=== PATIENT | female | born 1965 | race Caucasian/White ===

== ENCOUNTER 2019-08-15 08:41 | Outpatient (CLI) | payer OTHER, SELFPAY ==
--- NOTE | 2019-08-15 08:44 | MM_ITS ---
WS: [id number] SCREENING DIGITAL MAMMOGRAM WITH CAD HISTORY: SCREENING COMPARISON: 04/12/2018, 01/27/2011, 10/10/2012 and 08/14/2014 Bilateral CC and MLO views submitted. Computer aided detection analyzed. Breast composition: The breasts are heterogeneously dense, which may obscure small masses. Vague asym metry in the posterior medial LEFT breast measures 8.4 mm. This asymmetry was not present on the prio r examinations. Also not seen on the lateral projection with certainty. Could be obscured with the no rmal fibroglandular densities. LEFT breast: Spot compression views (CC and MLO). LEFT MLO spot compressions in the superior and midd le depth. True ML. Ultrasound to follow if abnormality persists. MM/[place] [id number] IMPRESSION: BI-RADS: 0-Incomplete: Need additional imaging evaluation FOLLOW UP: Need Additional Imaging
== END 2019-08-15 08:42 | disposition home or self-care (01) ==
LOC: RADSHAW 08:41
PROVIDERS: Family Provider Nurse Practitioner Family; PCP Nurse Practitioner Family; Visit Provider Nurse Practitioner Women's Health
DX: Z12.31 Encounter for screening mammogram for malignant neoplasm of breast (principal)
CPT/HCPCS: 77067

== ENCOUNTER 2019-09-08 08:56 | Outpatient (CLI) | payer OTHER, SELFPAY ==
--- NOTE | 2019-09-08 09:00 | MM_ITS ---
WS: [id number] ADDITIONAL VIEWS LEFT MAMMOGRAM LEFT BREAST ULTRASOUND HISTORY: abnormal mammogram COMPARISON: 08/15/2019, 04/12/2018 and 11/29/2015 LEFT MAMMOGRAM: Spot compression views and true ML. Asymmetries persist in the posterior LEFT breast. There are asymmetries both medial and lateral to th e nipple posteriorly. There is no architectural distortion. These are probably fibroglandular densiti es which are normal. LEFT BREAST ULTRASOUND 2-D and color Doppler imaging submitted. Ultrasound is directed to the posterior breast medial and lateral to the nipple. There is a hypoechoi c nodule measuring 6 x 3 x 5 mm at 12:00. Very benign in appearance. This may correspond to the abnor mality seen in the superior breast on the lateral projection. There are a few mildly prominent ducts. An additional area 2:00 3 cm nipple measures 1.1 x 0.3 x 0.6 cm. MM/[place] [id number] IMPRESSION: BI-RADS: 3-Probably Benign FOLLOW UP: 6 Month Follow-up Follow up recommended of multiple asymmetries in the LEFT breast. Asymmetries a re benign in appearance both by mammography and ultrasound but need further ruy luation.
--- NOTE | 2019-09-08 09:30 | US_ITS ---
WS: [id number] ADDITIONAL VIEWS LEFT MAMMOGRAM LEFT BREAST ULTRASOUND HISTORY: abnormal mammogram COMPARISON: 08/15/2019, 04/12/2018 and 11/29/2015 LEFT MAMMOGRAM: Spot compression views and true ML. Asymmetries persist in the posterior LEFT breast. There are asymmetries both medial and lateral to th e nipple posteriorly. There is no architectural distortion. These are probably fibroglandular densiti es which are normal. LEFT BREAST ULTRASOUND 2-D and color Doppler imaging submitted. Ultrasound is directed to the posterior breast medial and lateral to the nipple. There is a hypoechoi c nodule measuring 6 x 3 x 5 mm at 12:00. Very benign in appearance. This may correspond to the abnor mality seen in the superior breast on the lateral projection. There are a few mildly prominent ducts. An additional area 2:00 3 cm nipple measures 1.1 x 0.3 x 0.6 cm. US/US breast LT limited* [id number] IMPRESSION: BI-RADS: 3-Probably Benign FOLLOW UP: 6 Month Follow-up Follow up recommended of multiple asymmetries in the LEFT breast. Asymmetries a re benign in appearance both by mammography and ultrasound but need further ruy luation.
== END 2019-09-08 08:57 | disposition home or self-care (01) ==
LOC: RADSHAW 08:57
PROVIDERS: Family Provider Nurse Practitioner Family; PCP Nurse Practitioner Family; Visit Provider Nurse Practitioner Women's Health
DX: N64.89 Other specified disorders of breast (principal); R92.8 Other abnormal and inconclusive findings on diagnostic imaging of breast
CPT/HCPCS: 76642; 77065

== ENCOUNTER 2020-05-25 10:01 | Outpatient (CLI) | payer OTHER, SELFPAY ==
--- NOTE | 2020-05-25 10:12 | US_ITS ---
WS: [id number] ABDOMINAL ULTRASOUND LIMITED REASON FOR VISIT: ABD PAIN TECHNIQUE: Grayscale and Doppler ultrasound examination of the abdomen. FINDINGS: Pancreas: Visualized portions are unremarkable. No mass, calcification, or ductal dilatation. Abdominal aorta and IVC: Visualized portions are normal. Liver: Liver measures 14.3 cm in length. Homogeneous echo pattern without focal lesion. Gallbladder: Gallbladder wall thickness measures 0.1 mm. Large calculus in the neck of the gallbladde r, nonmobile. Right kidney: Right kidney measures 10.7 cm x 5.7 cm x 4.6 cm. No mass, calculus, or hydronephrosis. No free fluid. US/US gall bladder [id number] IMPRESSION: Cholelithiasis as above.
== END 2020-05-25 10:02 | disposition home or self-care (01) ==
PROVIDERS: PCP Nurse Practitioner Family; Visit Provider Nurse Practitioner Family
DX: R10.9 Unspecified abdominal pain (principal); K80.20 Calculus of gallbladder without cholecystitis without obstruction
CPT/HCPCS: 76705

== ENCOUNTER → 2021-03-11 12:25 | Outpatient (BNVA) | payer OTHER, SELFPAY | PROVIDERS: PCP Nurse Practitioner Family; Visit Provider Nurse Practitioner Women's Health | DX: Z01.419 Encounter for gynecological examination (general) (routine) without abnormal findings (principal) | CPT/HCPCS: 88175 ==

== ENCOUNTER → 2021-04-22 09:45 | Outpatient (BNVA) | payer OTHER, SELFPAY | PROVIDERS: PCP Nurse Practitioner Family; Visit Provider Nurse Practitioner Women's Health | DX: N95.1 Menopausal and female climacteric states (principal) | CPT/HCPCS: 82670; 83001 ==

== ENCOUNTER 2025-03-12 09:15 | Outpatient (CLI) | payer OTHER, SELFPAY ==
--- NOTE | 2025-03-12 09:30 | USR_ITS ---
PROCEDURE INFORMATION: Exam: US Duplex Lower Extremity Veins, Bilateral Exam date and time: 03/12/2025 9:45 AM Age: 59 years old Clinical indication: Pain; Leg, lower; Bilateral; Additional info: Bilateral foot pain TECHNIQUE: Imaging protocol: Real-time duplex ultrasound of the bilateral extremities with 2-D duran scale, color Doppler flow and spectral waveform analysis including responses to compression and other maneuvers (when performed) with image documentation. Complete exam focused on the lower extremity veins. COMPARISON: No relevant prior studies available. FINDINGS: Right deep veins: Unremarkable. The common femoral, femoral and popliteal veins are patent without thrombus. Normal Doppler waveforms. Normal compressibility and/or augmentation response. Left deep veins: Unremarkable. The common femoral, femoral and popliteal veins are patent without thrombus. Normal Doppler waveforms. Normal compressibility and/or augmentation response. Superficial veins: Greater saphenous veins at the saphenofemoral junctions are patent bilaterally without thrombus. Soft tissues: Unremarkable. Other findings: No reflux was identified by the ophthalmic medical technologist. US/CV shanika dup insudennis [facility] [id number] IMPRESSION: No evidence of deep vein thrombosis.
== END 2025-03-12 09:16 | disposition home or self-care (01) ==
LOC: RAD 09:15
PROVIDERS: PCP Nurse Practitioner Family; Visit Provider Podiatrist Foot & Ankle Surgery
DX: M79.671 Pain in right foot (principal); M79.672 Pain in left foot
CPT/HCPCS: 93970